=== PATIENT | female | born 1990 | race Caucasian/White ===

== ENCOUNTER → 2018-03-19 | Outpatient (CLI) | payer OTHER ==
[2018-03-19 16:54] LABS: BASOPHIL % 0.6 % (0-2); PLATELET COUNT 378 x10^3mcL (130-400)
[2018-03-19 17:11] LABS: RED CELL DISTRIBUTION WIDTH 20.8 % (11.5-14.5)
[2018-03-19 17:22] LABS: ALBUMIN 3.7 g/dL (3.4-5.0); ALKALINE PHOSPHATASE 58 U/L (46-116); ALT/SGPT 28 U/L (14-59); AST/SGOT 12 U/L (15-37); BILIRUBIN TOTAL 0.23 mg/dL (0.20-1.00); CARBON DIOXIDE 28.8 mmol/L (21-32); CHLORIDE SERUM 105 mmol/L (98-107); CHOLESTEROL 187 mg/dL (<200); CREATININE SERUM 0.7 mg/dL (0.6-1.0); FREE T4 0.92 ng/dL (0.76-1.46); GFR1 > 60 mL/min; GLUCOSE SERUM 97 mg/dL (74-106); POTASSIUM SERUM 3.6 mmol/L (3.5-5.1); SODIUM SERUM 141 mmol/L (136-145); TOTAL PROTEIN, SERUM 7.7 g/dL (6.4-8.2); TRIGLYCERIDES 108 mg/dL (<150)
[2018-03-19 17:52] LABS: CHOLESTEROL/HDL RATIO 2.8; HDL CHOLESTEROL 66 mg/dL (40-60)
[2018-03-19 18:57] LABS: rbc morphology (normal/abnorm) ABNORMAL (NORMAL)
[2018-03-19 18:58] LABS: ovalocyte/elliptocyte 1+
== END | disposition home or self-care (01) ==
LOC: US 16:00
PROC: BU4CZZZ Ultrasonography of Uterus and Ovaries (ICD-10-PCS; principal; 2018-03-19)
DX: Z76.89 Persons encountering health services in other specified circumstances (principal); N92.6 Irregular menstruation, unspecified; N92.1 Excessive and frequent menstruation with irregular cycle
CPT/HCPCS: 84439

== ENCOUNTER 2018-08-31 08:59 | Emergency (ER) | payer OTHER ==
[~2018-08-31] VITALS: Ht 149.9 cm; Wt 68.0 kg
[2018-08-31 09:01] VITALS: Ht 149.9 cm; Wt 68.0 kg
[2018-08-31 10:25] LABS: CALCIUM 8.6 mg/dL (8.5-10.1); CARBON DIOXIDE 27.2 mmol/L (21-32); CHLORIDE SERUM 105 mmol/L (98-107); CREATININE SERUM 0.7 mg/dL (0.6-1.0); GFR1 > 60 mL/min; GLUCOSE SERUM 89 mg/dL (74-106); POTASSIUM SERUM 4.2 mmol/L (3.5-5.1); SODIUM SERUM 139 mmol/L (136-145)
[2018-08-31 10:30] LABS: ALBUMIN 3.7 g/dL (3.4-5.0); ALKALINE PHOSPHATASE 54 U/L (46-116); ALT/SGPT 29 U/L (14-59); AMYLASE 83 U/L (25-115); AST/SGOT 15 U/L (15-37); BILIRUBIN TOTAL 0.4 mg/dL (0.20-1.00); LIPASE 63 IU/L (73-393); TOTAL PROTEIN, SERUM 7.7 g/dL (6.4-8.2)
[2018-08-31 10:38] LABS: BASOPHIL % 0.1 % (0-2); PLATELET COUNT 345 x10^3mcL (130-400)
[2018-08-31 10:40] LABS: RED CELL DISTRIBUTION WIDTH 24.7 % (11.5-14.5)
[2018-08-31 11:56] LABS: AMPHETAMINE QUAL UR NONE DETECTED (See below)
[2018-08-31 12:37] VITALS: BP 95/58
== END 2018-08-31 12:54 | disposition home or self-care (01) ==
LOC: ED 08:59
PROVIDERS: Emergency Medicine
DX: R07.89 Other chest pain (principal); D64.9 Anemia, unspecified; F12.90 Cannabis use, unspecified, uncomplicated; E66.9 Obesity, unspecified; Z68.30 Body mass index [BMI] 30.0-30.9, adult
CPT/HCPCS: 36415; 85378; G0480

== ENCOUNTER 2019-04-13 17:51 | Emergency (ER) | payer OTHER ==
[~2019-04-13] VITALS: Ht 124.5 cm; Wt 65.8 kg
[2019-04-13 18:13] VITALS: BP 121/70
== END 2019-04-13 18:43 | disposition home or self-care (01) ==
LOC: ED 17:51
DX: G56.03 Carpal tunnel syndrome, bilateral upper limbs (principal); G43.909 Migraine, unspecified, not intractable, without status migrainosus

== ENCOUNTER → 2019-07-07 | Outpatient (CLI) | payer OTHER ==
[2019-07-07 17:00] LABS: microscopic required? NO
[2019-07-07 17:17] LABS: BASOPHIL % 0.4 % (0-2); PLATELET COUNT 249 x10^3mcL (130-400); RED CELL DISTRIBUTION WIDTH 15.9 % (11.5-14.5); UA SPECIFIC GRAVITY 1.025 (1.005-1.035); urine erythrocyte NEGATIVE (NEGATIVE)
[2019-07-07 17:45] LABS: CARBON DIOXIDE 25.2 mmol/L (21-32); CHLORIDE SERUM 106 mmol/L (98-107); GLUCOSE SERUM 89 mg/dL (74-106); POTASSIUM SERUM 3.6 mmol/L (3.5-5.1); SODIUM SERUM 139 mmol/L (136-145)
[2019-07-07 17:46] LABS: CREATININE SERUM 0.5 mg/dL (0.6-1.0); GFR1 > 60 mL/min; TOTAL PROTEIN, SERUM 7.6 g/dL (6.4-8.2)
[2019-07-07 17:47] LABS: ALBUMIN 3.7 g/dL (3.4-5.0); ALKALINE PHOSPHATASE 61 U/L (46-116); ALT/SGPT 30 U/L (14-59); AST/SGOT 11 U/L (15-37); BILIRUBIN TOTAL 0.3 mg/dL (0.20-1.00); CALCIUM 8.7 mg/dL (8.5-10.1); CHOLESTEROL 197 mg/dL (<200); TRIGLYCERIDES 74 mg/dL (<150)
[2019-07-07 17:48] LABS: CHOLESTEROL/HDL RATIO 3.3; FREE T4 0.82 ng/dL (0.76-1.46); HDL CHOLESTEROL 60 mg/dL (40-60)
== END | disposition home or self-care (01) ==
LOC: LB 16:19
DX: N92.6 Irregular menstruation, unspecified (principal); Z13.29 Encounter for screening for other suspected endocrine disorder; Z13.228 Encounter for screening for other metabolic disorders; Z13.21 Encounter for screening for nutritional disorder; Z86.32 Personal history of gestational diabetes; Z83.3 Family history of diabetes mellitus; Z13.0 Encounter for screening for diseases of the blood and blood-forming organs and certain disorders involving the immune mechanism; Z13.220 Encounter for screening for lipoid disorders
CPT/HCPCS: 82306; 82672; 84402; 84403; 84439

== ENCOUNTER 2019-08-27 13:48 | Emergency (ER) | payer OTHER ==
[~2019-08-27] VITALS: Ht 149.9 cm; Wt 77.1 kg
[2019-08-27 14:03] VITALS: Ht 149.9 cm; Wt 77.1 kg
[2019-08-27 14:36] VITALS: BP 112/57
== END 2019-08-27 14:36 | disposition home or self-care (01) ==
LOC: ED 13:48
DX: Z76.0 Encounter for issue of repeat prescription (principal); J45.909 Unspecified asthma, uncomplicated

== ENCOUNTER 2019-09-01 23:43 | Emergency (ER) | payer OTHER ==
[~2019-09-01] VITALS: Ht 152.4 cm; Wt 77.6 kg
[2019-09-01 23:50] VITALS: Ht 152.4 cm; Wt 77.6 kg
[2019-09-02 00:59] VITALS: BP 111/73
== END 2019-09-02 00:59 | disposition home or self-care (01) ==
LOC: ED 23:43
DX: J45.901 Unspecified asthma with (acute) exacerbation (principal); Z98.890 Other specified postprocedural states
CPT/HCPCS: J7512; J7613; J7644